=== PATIENT | male | born 1995 | race Caucasian/White ===

== ENCOUNTER 2019-05-10 19:40 | Emergency (ER) | payer OTHER ==
[~2019-05-10] VITALS: Ht 160 cm; Wt 65.1 kg
[2019-05-11] MEDS ORDERED: IBUP-1022 PO (00:44)
[2019-05-11] MEDS ORDERED: ANEC4CRE3 TOP (00:44)
[2019-05-11] MEDS ORDERED: LIDOCAINE 4% CREAM 5GM (LMX4) TOP ONE (00:45)
[2019-05-11] MEDS ORDERED: IBUPROFEN 600 MG TAB PO ONE (00:45)
[2019-05-11 01:32] VITALS: BP 123/79
--- NOTE | 2019-05-11 08:15 | REP ---
Left wrist series: Four views. History: Pain with movement. Findings: Four views of the left wrist show subtle hypertrophy and irregularity of the navicular multangular articulation question old post-traumatic change. No acute bony abnormality is seen. Bones, joints and soft tissues are otherwise unremarkable. Impression: Subtle hypertrophy and irregularity at the navicular multangular articulation. Old changes. No acute bony abnormality. Electronically Signed by Terrance La MD 05/11/2019 08:07 A
== END 2019-05-11 01:34 | disposition home or self-care (01) ==
LOC: M ED 19:40
DX: M65.4 Radial styloid tenosynovitis [de Quervain] (principal); F17.210 Nicotine dependence, cigarettes, uncomplicated

== ENCOUNTER 2021-01-22 20:39 | Emergency (ER) | payer OTHER ==
[~2021-01-22] VITALS: Ht 160 cm; Wt 60.3 kg
[~2021-01-22 20:39] MED LIST: ANEC4CRE3 TOP; IBUP-1022 PO
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
[2021-01-23] MEDS ORDERED: CYCL-707 PO (01:04)
[2021-01-23 01:16] VITALS: BP 119/67
== END 2021-01-23 01:36 | disposition home or self-care (01) ==
LOC: M ED 20:39
DX: S13.4XXA Sprain of ligaments of cervical spine, initial encounter (principal); V49.49XA Driver injured in collision with other motor vehicles in traffic accident, initial encounter; Y92.410 Unspecified street and highway as the place of occurrence of the external cause; F17.210 Nicotine dependence, cigarettes, uncomplicated